=== PATIENT | female | born 1980 | race Caucasian/White ===

== ENCOUNTER 2020-09-20 18:22 | Emergency (ER) | payer OTHER, SELFPAY ==
[2020-09-20 19:14] VITALS: BP 130/90; PULSE 89; RESP 18; TEMP 36.6; O2SAT 97
--- NOTE | 2020-09-20 19:48 | ED.GENADULT ---
HPI - General Adult General Chief complaint: Unspecified Stated complaint: I want a preg test Time Seen by Provider: 09/20/20 19:15 Source: patient and RN notes reviewed Mode of arrival: ambulatory Limitations: no limitations History of Present Illness HPI narrative: Patient is a 40-year-old female who presents noting that she has felt more fatigued over the last couple of days had concern for possible test presents in no distress has no other complaints and does not appear uncomfortable on arrival has not been seen for this complaint Related Data Home Medications Medication Instructions Recorded Confirmed diclofenac sodium PO 09/20/20 09/20/20 ferrous sulfate [FeroSul] mg 09/20/20 hydrochlorothiazide 09/20/20 Allergies Allergy/AdvReac Type Severity Reaction Status Date / Time acetaminophen [From Percocet] Allergy Unknown Verified 09/20/20 19:13 oxycodone [From Percocet] Allergy Unknown Verified 09/20/20 19:13 Review of Systems Review of Systems: All systems reviewed & are unremarkable except as noted in HPI and below PMFSH Surgical History Surgical History (Updated 09/20/20 @ 19:49 by Abdon Iraheta PA-C) History of tubal ligation Exam Narrative: GENERAL: Well-appearing, well-nourished, and in no acute distress. HEAD: Normocephalic, atraumatic. EYES: PERRLA and EOMI. ENT: Nares clear, no rhinorrhea or epistaxis. Mucous membranes moist. CHEST: Clear to auscultation. No respiratory distress. No wheezes rales or rhonchi HEART: Regular rate and rhythm. No murmur heard. . EXTREMITIES: Normal range of motion. No edema. SKIN: Warm, dry, no rash. NEURO: No focal deficits. Alert and oriented x3. PSYCH: Normal mood and affect. Course Course Emergency Course: Patient with negative test no other complaints will be discharged at this time with outpatient follow-up she feels comfortable with this Vital Signs Vital signs: Vital Signs Temperature 97.9 F 09/20/20 19:14 Pulse Rate 89 09/20/20 19:14 Respiratory Rate 18 09/20/20 19:14 Blood Pressure 130/90 09/20/20 19:14 Pulse Oximetry 97 09/20/20 19:14 Temperature 97.9 F 09/20/20 19:14 Pulse Rate 89 09/20/20 19:14 Respiratory Rate 18 09/20/20 19:14 Blood Pressure 130/90 09/20/20 19:14 Pulse Oximetry 97 09/20/20 19:14 Medical Decision Making MDM Narrative Medical decision making narrative: Patient presented wanting test was negative she is aware of this she feels comfortable for discharge home Vital Signs Vital Signs: Vital Signs Temperature 97.9 F 09/20/20 19:14 Pulse Rate 89 09/20/20 19:14 Respiratory Rate 18 09/20/20 19:14 Blood Pressure 130/90 09/20/20 19:14 Pulse Oximetry 97 09/20/20 19:14 Temperature 97.9 F 09/20/20 19:14 Pulse Rate 89 09/20/20 19:14 Respiratory Rate 18 09/20/20 19:14 Blood Pressure 130/90 09/20/20 19:14 Pulse Oximetry 97 09/20/20 19:14 Lab Data Labs: UCG Bedside Result Negative Reference Range: Negative Discharge Plan Discharge Clinical Impression: Fatigue Patient Disposition: Home, Self-Care Condition: Stable Instructions: Antibiotic Form, Fatigue (ED) Additional Instructions: Follow up with your primary care provider within 1-2 days to set up for reevaluation. Go to ER for shortness of breath, difficulty breathing, chest pain, fever/chills, weakness, nauseau/vomitting, etc. or any other concerns. Take any prescribed medications as directed. If you do not have a drug allergy to tylenol or motrin and can tolerate it then take tylenol or motrin as needed for discomfort/pain. Prescriptions: No Action ferrous sulfate [FeroSul] 325 mg (65 mg iron) tablet RF: 0 diclofenac sodium 50 mg tablet,delayed release (DR/EC) PO RF: 0 hydrochlorothiazide 12.5 mg tablet RF: 0 Follow-up/Referrals: [facility]
== END 2020-09-20 20:15 | disposition home or self-care (01) ==
LOC: ANHED 20:16
PROVIDERS: Emergency Provider Emergency Medicine
DX: R53.83 Other fatigue (principal)
CPT/HCPCS: 81025; 99283